=== PATIENT | male | born 1960 | race Caucasian/White ===

== ENCOUNTER 2024-09-28 15:31 | Emergency (ER) | payer BC ==
[2024-09-28] MEDS ORDERED: IBUPROFEN 400 MG TAB ONE (16:42)
--- NOTE | 2024-09-28 18:17 | RAD REPORT ---
Exam:Shoulder Left 2+ Views HISTORY: Left shoulder pain FINDINGS: No fracture or dislocation seen. Mild narrowing of the AC joint.
--- NOTE | 2024-09-28 18:19 | RAD REPORT ---
EXAMINATION: Lumbar Spine 3 Views CLINICAL INDICATION: Back pain FINDINGS: No fracture or dislocation seen. Mild spondylosis involves the lumbar spine.
--- NOTE | 2024-09-28 18:19 | RAD REPORT ---
Exam:Forearm Left Clinical history: Left forearm pain Findings: No fracture is visualized.
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
[2024-09-28] MEDS ORDERED: methocarbamoL 750 MG TAB ONE (19:04)
[2024-09-28] MEDS ORDERED: LIDOCAINE 4% PATCH ONE (19:04)
[2024-09-28 19:53] VITALS: O2SAT 100
[2024-09-28 19:55] VITALS: TEMP 98
[2024-09-28 19:56] VITALS: BP 136/82
== END 2024-09-28 19:45 | disposition home or self-care (01) ==
LOC: ER 15:31
DX: M54.50 Low back pain, unspecified (principal); S43.492A Other sprain of left shoulder joint, initial encounter; S50.12XA Contusion of left forearm, initial encounter; V49.49XA Driver injured in collision with other motor vehicles in traffic accident, initial encounter
CPT/HCPCS: 72100; 73090; 73030; 99284; J2003